=== PATIENT | male | born 1940 | race Caucasian/White ===

== ENCOUNTER → 2017-05-31 | Outpatient (CLI) | payer MEDICARE, BC ==
[~2017-05-31] MED LIST: ACET500T68 PO; ASPI-757 PO; ASPI-816; BUTA1CAP6 PO; DOCU-416 PO; FLU180SY9 IM; FLU45SYR25 IM ONLY; HYDR-385 PO; HYDR-4309 PO; IBUP600T22 PO; LEVE500T73 PO; TAMS0.4C70 PO
[2017-05-31 14:06] LABS: PLATELET COUNT, AUTOMATED 152 K/uL (150-450)
[2017-05-31 14:22] LABS: LDL CHOLESTEROL 131 mg/dl
== END ==
LOC: LAB 13:53
PROVIDERS: ATTEND Internal Medicine
DX: R42 Dizziness and giddiness (principal); S06.6X9A Traumatic subarachnoid hemorrhage with loss of consciousness of unspecified duration, initial encounter; N40.0 Benign prostatic hyperplasia without lower urinary tract symptoms; R51 Headache
CPT/HCPCS: 36415; 84443; 85025; G0103; 82040; 82247; 82310; 82374; 82435; 82465; 82565; 82947; 83718; 84075; 84132; 84153; 84155; 84295; 84450; 84460; 84478; 84520

== ENCOUNTER → 2017-06-05 | Outpatient (CLI) | payer MEDICARE, BC ==
[~2017-06-05] MED LIST changes: +IOPAMIDOL 76% 75 ML INFUS BTL 75 ML ONE; +NS 0.9% 50 ML VIAL 50 ML ONE
--- NOTE | 2017-06-05 13:50 | RADIOLOGY IMAGING REPORT ---
FACILITY: [facility] PATIENT NAME: Miles Gonzalez : 1940 MR: [id number] V: [id number] EXAM DATE: ORDERING PHYSICIAN: ANDREW MOSS TECHNOLOGIST: Location: [facility] Patient: Miles Gonzalez : 1940 Visit/Account:[id number] Date of Sevice: 06/05/[address] without and with contrast INDICATION: Dizziness, headache COMPARISON: 12/21/2016 TECHNIQUE: Pre and postcontrast head CT was performed with sagittal and coronal reformations. One of the following dose optimization techniques was utilized in the performance of this exam: automated e xposure control; adjustment of the mA and/or kV according to patient size; or use of iterative recons truction technique. Specific details can be referenced in the facility's radiology CT exam operation al policy. 75 mL [id number] injected. FINDINGS: The basal cisterns, carbajal-white differentiation and convexity sulci are maintained. No intracranial h emorrhage, hydrocephalus or midline shift. Normal orbital soft tissues. Mild unchanged atrophy. Mi ld unchanged patchy white matter hypoattenuation. Left temporal lobe encephalomalacia has decreased in size and evolved when compared to prior. Clear mastoid air cells, trace sphenoid sinus secretions. No acute osseous abnormality. Unchanged v enous sylvester or hemangioma in the left frontal bone. No pathologic enhancement. No apparent vascular abnormality. IMPRESSION: 1. No acute finding. 2. No pathologic enhancement. 3. Left temporal lobe encephalomalacia has evolved when compared to prior. 4. Mild unchanged chronic small vessel ischemic change. Report Dictated By: Wilbert Munguia MD at 06/05/2017 1:37 PM Report E-Signed By: Wilbert Munguia MD at 06/05/2017 1:45 PM WSN:[id number]
== END ==
LOC: MRI 01:06
PROVIDERS: ATTEND Internal Medicine
DX: G93.89 Other specified disorders of brain (principal)
CPT/HCPCS: 70470; J7050; Q9967

== ENCOUNTER 2017-12-05 08:15 | Outpatient (RCR) | payer MEDICARE, BC ==
--- NOTE | 2017-11-07 11:42 | PT INITIAL EVALUATION ---
MEDICAL DIAGNOSIS: R42 TREATMENT DIAGNOSIS: Same, R posterior canal BPPV, vestibular-spinal reflex dysfunction DATE OF ONSET: 09/12/16 SUBJECTIVE: Miles Gonzalez presents to PT for dysequilibrium with head low/up motions since his CHI 09/12/16, improving over the last two months but still present. He denies rib pain from his R rib fractures in the fall that caused a CHI. 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 Guadalupe, four knees surgeries, CHI with subarachnoid bleed. OCCUPATION: Retired, lives with his , independent in all ADL's. OBJECTIVE: Posture: Increased thoracic kyphosis ~T3-7, forward head, head midline. ROM: PROM cervical spine extension 25%, sidebend 25% B, rotation 50% B, lower cervical extension minimal. Thoracic AROM flexion 50%, extension minimal, rotation 50% B, sidebend 25% B. Palpation: Hypomobile lower cervical and thoracic spine, tight soft tissue. Special Tests: Positive R upbeating and torsional nystagmus x2 beats with R Hallpike. Negative VOR x1, positive VOR x2 for saccade. Gait: Functional Gait Assessment 20% impairment. Miles has mild weaving R with gait with head rotation, with forward gait with eyes shut. Normal change of gait speed, pivot turns gait with vertical head motion. Balance: LOB immediately with tandem stand, L and R, which Miles says is from his spinal surgeries. ASSESSMENT: Miles Gonzalez presents with both R posterior canal BPPV and altered vestibular-spinal reflex from hypomobile spinal column. He did well with Gale' s maneuver and is started on spinal ROM HEP. Short Term Goals/Patient's Goals 4 weeks: Miles ties his shoes, kneels and stands without feeling of dysequilibrium and with normal balance reactions. PLAN: Patient to be seen for Manual Therapy, Range of Motion, Spinal Stabilization, Stretching, Neuromuscular Re-ed, Gait Trg/Balance Trg, Home Exercise Program 2x/Week for 4 Weeks Thank you for this referral. If you have any questions, comments, or concerns about this report or plan, please contact me at . MTDD
[~2017-12-05 08:15] MED LIST changes: -ASPI-816; +ASPI-870; -IOPAMIDOL 76% 75 ML INFUS BTL 75 ML ONE; -NS 0.9% 50 ML VIAL 50 ML ONE
--- NOTE | 2017-12-05 09:01 | PT PLAN OF CARE ---
Physician: Dr. Truong Preston Patient is being seen: 2x/week Therapist: Nora Lux, KARIME Medical Diagnosis: R42 Dizziness and giddiness Treatment Diagnosis: Same, R posterior canal BPPV, vestibular dysfunction Date of Onset: 09/12/16 Date of Initial Evaluation: 11/07/17 Date patient was last seen: 12/05/17 Number of treatments: 8 Number of cancellations/No shows: 0 INTERVENTIONS: Neuromuscular Re-ed, Balance Trg, Manual Therapy, ROM/Stretching , Home Exercise Program GOALS/PATIENT'S GOAL: 4 weeks: Miles ties his shoes, kneels and stands without feeling of dysequilibrium and with normal balance reactions. all met Patient Compliance: Excellent Prognosis: Excellent Reasons for discontinuing therapy: S: Miles relates he can tie shoes, reach down without loss of balance or dizziness. He has infrequent dysequilibrium but doesn't relate anything that causes it. O: Posture: Increased thoracic kyphosis ~T3-7, forward head, head midline. ROM: PROM cervical spine extension 75%, rotation 75% B, lower cervical extension 25%. Thoracic AROM flexion 50%, extension 25%, rotation 50% B. Gait/Balance: Functional Gait Assessment 28/30, a 7% impairment. Miles now ambulates with head motion, eyes closed, backwards with normal gait and normal line of progression. He demonstrates normal balance reactions on firm and uneven surfaces. Special Tests: Negative VOR x1/x2. Negative Hallpike. A/P: Miles Gonzalez has resolved his vertigo, has mild dizziness consistent with his history of CHI. I'll DC PT to HEP. Thank you. JOSÉ LUIS
== END 2017-12-05 10:33 | disposition home or self-care (01) ==
LOC: PT 08:15
PROVIDERS: ATTEND Internal Medicine
DX: H81.11 Benign paroxysmal vertigo, right ear (principal); H81.91 Unspecified disorder of vestibular function, right ear
CPT/HCPCS: 97162

== ENCOUNTER → 2018-03-27 | Outpatient (REF) | payer MEDICARE, BC ==
[~2018-03-27] MED LIST changes: -HYDR-4309 PO; +HYDR-653 PO
== END ==
LOC: ZZSENDIN 12:00
PROVIDERS: ATTEND Urology
DX: R97.20 Elevated prostate specific antigen [PSA] (principal); R31.9 Hematuria, unspecified
CPT/HCPCS: 88305; 88344

== ENCOUNTER → 2018-07-18 | Outpatient (CLI) | payer MEDICARE, BC ==
[2018-07-18 11:34] LABS: PLATELET COUNT, AUTOMATED 139 K/uL (150-450)
[2018-07-18 11:51] LABS: LDL CHOLESTEROL 117 mg/dl
--- NOTE | 2018-07-18 13:10 | EKG ---
[place] [facility] [place] NAME: DENZEL HERNANDEZ : [id number] MR: [id number] V: [id number] EXAM DATE: ORDERING PHYSICIAN: ANDREW MOSS TECHNOLOGIST: MOI Prasad Reason : PREOP Blood Pressure : / mmHG Vent. Rate : 063 BPM Atrial Rate : 063 BPM P-R Int : 182 ms QRS Dur : 102 ms QT Int : 396 ms P-R-T Axes : 028 -02 016 degrees QTc Int : 405 ms Normal sinus rhythm Normal ECG No previous ECGs available Confirmed by ANDREW MOSS ([id number]) on 07/19/2018 5:00:17 PM Referred By: Confirmed By:ANDREW MOSS
== END ==
LOC: LAB 10:07
PROVIDERS: ATTEND Internal Medicine
DX: Z01.818 Encounter for other preprocedural examination (principal)
CPT/HCPCS: 36415; 81001; 82040; 82247; 82310; 82374; 82435; 82465; 82565; 82947; 83718; 84075; 84132; 84153; 84155; 84295; 84443; 84450; 84460; 84478; 84520; 85025

== ENCOUNTER 2018-10-31 11:15 | Outpatient (RCR) | payer MEDICARE, BC ==
--- NOTE | 2018-08-20 18:03 | PT INITIAL EVALUATION ---
MEDICAL DIAGNOSIS: L MARIA A anterior approach TREATMENT DIAGNOSIS: Same, altered gait and balance DATE OF ONSET: 08/13/18 SUBJECTIVE: Miles Gonzalez presents to PT for L anterior MARIA A, 08/13/[address] Knapp. He would like to regain balance and strength for community ambulation, independent gait pain free at the L hip, safe stair use, yard work and travel, all of which he isn't doing. Pain location is L hip and described as ache. Pain scale is 6 on a ten point pain scale. Pain is worse with walking and better with rest. REHAB PROBLEM LIST: Increased Pain Decreased ROM Decreased Strength Decreased Endurance Decreased Balance Decreased Function Decreased Gait PREVIOUS MEDICAL HISTORY: Subarachnoid bleed 2016, chest surgery for osteochondroma 1969, 2 knee surgeries, R TSA OCCUPATION: Retired heavy construction work OBJECTIVE: Posture: WB more through L LE. ROM: L knee AROM WNL, ankles DF PROM 0 degrees B. L hip AROM deferred. Strength: L quad, hamstring 4-/5, R 5-/5, ankle DF B 5-/5 Mobility: Sit/stand independent 23" seat height. Gait: TUG 19 seconds, a 78% impairment, FWW. Gait speed 1.2 ft./second with RW. Feet pass each other and clear the floor, heel strike to toe off B. Balance: Double limb support. Functional reach 10". ASSESSMENT: Miles Gonzalez presents with reduced strength, altered gait, imbalance following his L anterior approach MARIA A. He did well with strengthening and gait exercise today. Short Term Goals/Patient's Goals One month: Independent gait on the level with even step length, ascends stairs with handrail with quad control. Two months: Descends stair with handrail with quad control, demonstrates corrective balance reactions on firm and uneven surfaces. PLAN: Patient to be seen for L anterior MARIA A Strengthening/condition, Ice/Heat, Range of Motion, Stretching, Neuromuscular Re-ed, Electrical Stim, Gait Trg/Balance Trg, Home Exercise Program 2x/Week for 2 Months Thank you for this referral. If you have any questions, comments, or concerns about this report or plan, please contact me at . PA-C signature date MTDD
--- NOTE | 2018-09-19 12:05 | PT PLAN OF CARE ---
Physician: Silvia VIEIRA Appointment: 09/25/18 Patient is being seen: 2x/week Therapist: Nora Lux PT Medical Diagnosis: L MARIA A anterior approach Treatment Diagnosis: Same, altered gait and balance Date of Onset: 08/13/18 Date of Initial Evaluation: 08/20/18 Date patient was last seen: 09/19/18 Number of treatments: 8 Number of cancellations/No shows: 0 INTERVENTIONS: Strengthening/condition, Gait Training, Home Exercise Program GOALS/PATIENT'S GOAL: One month: Independent gait on the level with even step length (progressing), ascends stairs with handrail with quad control (progressing). Two months: Not met: Descends stair with handrail with quad control, demonstrates corrective balance reactions on firm and uneven surfaces. Patient Compliance: Excellent Prognosis: Excellent Reasons for continuing therapy: S: Miles denies L hip pain but reports L lateral metatarsal region pain 6/10 with ambulation. He's using stairs at home. Posture: Even WB LE's. ROM: L hip flexion 115 deg, adduction WNL, ER tight. Strength: L LE squat fair. Gait: Hurrycane with mild L hip vaulting, WNL heel strike to toe off. TUG 11 sec. (Norms 70-79 y/o 7.7 sec, SD 2.3 sec.). Gait speed 10 ft./5 seconds, a limited community ambulator. Balance: Mild retro balance disturbance turning when distracted. Mobility: Sit/stand independent 21" seat height. A/P: Miles Gonzalez is improving gait, needs to continue strengthening and work balance for safe independent ambulation. If you agree, we'll continue 2x/week another 7 weeks to goals set. Thank you. Provider signature date [facility]
--- NOTE | 2018-09-25 16:44 | PT PLAN OF CARE ---
Physician: Silvia VIEIRA Patient is being seen: 2x/week Therapist: Nora Lux PT Medical Diagnosis: L MARIA A anterior approach Treatment Diagnosis: Same, altered gait and balance Date of Onset: 08/13/18 Date of Initial Evaluation: 08/20/18 Date patient was last seen: 09/25/18 Number of treatments: 10 Number of cancellations/No shows: 1 INTERVENTIONS: Anterior approach MARIA A Therapeutic exercise, Neuromuscular Re-ed, Gait Trg/Balance Trg, HEP GOALS/PATIENT'S GOAL: One month: Independent gait on the level with even step length (progressing), ascends stairs with handrail with quad control (progressing). Two months: Not met: Descends stair with handrail with quad control, demonstrates corrective balance reactions on firm and uneven surfaces. Patient Compliance: Excellent Prognosis: Excellent Reasons for continuing therapy: S: Shelly relates he uses stairs at home with handrail with control. His L lateral foot is sore, and he denies L hip pain. Posture: Even WB LE's. ROM: L hip AROM 100 deg. flexion, adduction WNL. Strength: L quad eccentric strength moderate with stair descent, handrail. Gait: SPC, mild prolonged R stance, feet clear the floor and pass each other. Miles turns <4 seconds with control. TUG 12 seconds, 1 SD < norm. Mobility: Sit/stand independent 21" seat height. A/P: Shelly Gonzalez is improving gait speed, mobility. He needs to progress to independent gait, improve strength and work balance. If you agree, we'll continue 2x/week 4-5 more weeks. Thank you. Silvia Warner PA-C date MTDD
--- NOTE | 2018-10-29 12:50 | PT PLAN OF CARE ---
Physician: Silvia VIEIRA Patient is being seen: 2x/week Therapist: Nora Lux, PT Medical Diagnosis: L MARIA A anterior approach Treatment Diagnosis: Same, altered gait and balance Date of Onset: 08/13/18 Date of Initial Evaluation: 08/20/18 Date patient was last seen: 10/29/18 Number of treatments: 20 Number of cancellations/No shows: 0 INTERVENTIONS: Strengthening/condition, Gait Trg/Balance Trg, Home Exercise Program GOALS/PATIENT'S GOAL: One month: Independent gait on the level with even step length (met), ascends stairs with handrail with quad control (met). Two months: Descends stair with handrail with quad control (met), demonstrates corrective balance reactions on firm and uneven surfaces (met). Patient Compliance: Excellent Prognosis: Excellent Reasons for continuing therapy: S: Shelly relates his L knee hurts more than the L hip, as he was gardening on hands and knees this weekend. L hip is 0/10, L knee pain is 2/10. Posture: Even WB through LE's. ROM: L knee AROM WNL, L hip PROM 115 deg. flexion, WNL adduction, extension, ER 30 degrees, IR 20 deg. Strength:B quad, hamstring 5/5, L hip flexor 4/5, abductor 4+/5, G. max 4/5. Gait/Balance: Miles has returned to SPC with L LE limp off L knee at midstance, normal hip extension. He demonstrates corrective balance reactions. He uses stairs with hand rail with normal eccentric quad control, L knee reduced flexion descending stairs. Mobility: Sit/stand independent 21" seat height. Other: Negative meniscal, ACL, PCL tests, absent L patella. A/P: Miles Gonzalez has improved strength, ROM, can regain normal gait as his knee reduces pain. If you agree, we'll finish one more visit of PT for gym exercise instruction then DC PT. Thank you. Silvia VIEIRA date MTDD
[~2018-10-31 11:15] MED LIST changes: +DICL100G39 TOP
--- NOTE | 2018-10-31 17:32 | PT PLAN OF CARE ---
Physician: Silvia VIEIRA Patient is being seen: 2x/week Therapist: Nora Lux, PT Medical Diagnosis: L MARIA A anterior approach Treatment Diagnosis: Same, altered gait and balance Date of Onset: 08/13/18 Date of Initial Evaluation: 08/20/18 Date patient was last seen: 10/31/18 Number of treatments: 21 Number of cancellations/No shows: 0 INTERVENTIONS: Strengthening/condition, Gait Trg/Balance Trg, Home Exercise Program GOALS/PATIENT'S GOAL: One month: Independent gait on the level with even step length (met), ascends stairs with handrail with quad control (met). Two months: Descends stair with handrail with quad control (met), demonstrates corrective balance reactions on firm and uneven surfaces (met). Patient Compliance: Excellent Prognosis: Excellent Reasons for discontinuing therapy: S: Miles reports his knee doesn't hurt as much. O: Posture: Even WB through LE's. ROM: L hip PROM 115 deg. flexion, WNL adduction, extension, ER 30 degrees, IR 20 deg. Strength: B quad, hamstring 5/5, L hip flexor 4/5, abductor 4+/5, G. max 4/5. Gait/Balance: Miles now ambulates with a mild L early heel off on the level. He demonstrates corrective balance reactions. He uses stairs with hand rail with normal eccentric quad control, L knee reduced flexion descending stairs. Mobility: Sit/stand independent 21" seat height. A/P: Miles Gonzalez has improved gait, pain since his gardening. He's now independent with gym exercise. He's chosen to do our self-pay gym program for a month. I'll DC PT. Thank you. JOSÉ LUIS
== END 2018-10-31 18:00 | disposition home or self-care (01) ==
LOC: PT 11:15
PROVIDERS: ATTEND Physician Assistant
DX: Z47.1 Aftercare following joint replacement surgery (principal); Z96.642 Presence of left artificial hip joint
CPT/HCPCS: 97161